=== PATIENT | female | born 1955 | race American Indian/Alaskan Native ===

== ENCOUNTER 2020-07-25 20:23 | Emergency (ER) | payer MEDICARE ==
--- NOTE | 2020-07-25 20:51 | Emergency Department Report ---
HPI - General Chief Complaint: Extremity Injury, Lower Time Seen by Provider: 07/25/20 20:38 - HPI HPI: This is a 64-year-old -[place] female presents to the emergency department with complaint of right knee pain after she fell while leaving a [employer]fat[employer] just prior to presentation. The patient says that her right leg "will not straighten out", and there appears to be some deformity to the right kneecap. The patient says that she is unsure whether she slipped or tripped on something but she fell backwards and her right leg went underneath her. She did not take anything or receive anything for her symptoms prior to presentation. She has a past medical history of hypertension and diabetes. Pain is currently 3 out of 10 in intensity while at rest, but increases significantly with any manipulation or movement of the right knee. Patient denies hitting her head or any loss of consciousness. She denies any neck or back pain, laceration or skin color change. ED Past Medical Hx - Medications Home Medications: Home Medications Medication Instructions Recorded Confirmed Last Taken Type HYDROcodone/APAP 5-325 [[place] 1 each PO Q6HR PRN #12 tablet 07/25/20 Unknown Rx 5/325] ED Review of Systems ROS: Stated complaint: FALL/RT KNEE INJURY Other details as noted in HPI Comment: All other systems reviewed and negative Constitutional: denies: chills, fever Eyes: denies: eye pain, vision change ENT: denies: ear pain, throat pain Respiratory: denies: cough, shortness of breath Cardiovascular: denies: chest pain, palpitations Gastrointestinal: denies: abdominal pain, vomiting Genitourinary: denies: dysuria, discharge Musculoskeletal: joint swelling, arthralgia Skin: denies: rash, lesions Neurological: denies: headache, numbness, paresthesias Physical Exam - Physical Exam Vital Signs: Vital Signs 07/25/20 07/25/20 20:41 20:45 Pulse Rate 82 Respiratory 10 L Rate Blood Pressure 202/86 O2 Sat by Pulse 100 100 Oximetry Physical Exam: GENERAL: The patient is well-developed well-nourished. HENT: Normocephalic. Atraumatic. Patient has moist mucous membranes. EYES: Extraocular motions are intact. NECK: Supple. Trachea is midline. CHEST/LUNGS: Clear to auscultation. There is no respiratory distress noted. HEART/CARDIOVASCULAR: Regular. There is no tachycardia. There is no murmur. ABDOMEN: Abdomen is soft, nontender. Patient has normal bowel sounds. SKIN: Skin is warm and dry. NEURO: The patient is awake, alert, and oriented. The patient is cooperative. Normal speech. MUSCULOSKELETAL: There is some tenderness to palpation to the right anterior knee. The right patella appears deformed and is superior lateral to its anatomic position. The patient's right leg is in slight flexion at the knee and the patient is unable to fully extend her leg. +2/4 dorsalis pedis pulse of the affected right lower extremity. ED Course Vital Signs 07/25/20 07/25/20 20:41 20:45 Pulse Rate 82 Respiratory 10 L Rate Blood Pressure 202/86 O2 Sat by Pulse 100 100 Oximetry ED Medical Decision Making - Radiology Data Radiology results: image reviewed interpreted by me: X-ray of the right knee shows a comminuted fracture of the right patella with the greatest fracture line transverse through the middle of the patella. No foreign body. No joint dislocation. - Medical Decision Making This patient presents to the emergency department with right knee pain after falling while leaving a fast food restaurant. The patient fell backwards in her right leg was bent underneath her. On examination the patient appears to have some deformity to the right patella. X-ray shows a comminuted and displaced transverse patella fracture. Part of the patella has been pulled inferiorly and the other half superiorly. The patient is neurovascularly intact. She was placed in a knee immobilizer and will be placed on crutches to be nonweightbearing to the right lower extremity. The patient presented with some elevated blood pressure. She does have a history of hypertension and is due to take her amlodipine this evening. I gave her a dose of her amlodipine and the blood pressure came down to a more reasonable level. The patient is otherwise asymptomatic from his hypertension. She will be discharged home to follow-up with an orthopedist. She will return to the emergency department with any worsening of her symptoms or with any acute distress. Critical Care Time: No Critical care attestation.: If time is entered above; I have spent that time in minutes in the direct care of this critically ill patient, excluding procedure time. ED Disposition Clinical Impression: Fracture of right patella Qualifiers: Encounter type: initial encounter Fracture type: closed Fracture morphology: comminuted Fracture alignment: displaced Qualified Code(s): S82.041A - Displaced comminuted fracture of right patella, initial encounter for closed fracture Hypertension Qualifiers: Hypertension type: essential hypertension Qualified Code(s): I10 - Essential (primary) hypertension Disposition: TO HOME OR SELFCARE Is pt being admited?: No Condition: Stable Instructions: How to Use a Knee Brace, Hypertension, Adult, Patellar Fracture, Adult, Hypertension (ED) Additional Instructions: Please follow-up with an orthopedist in the next few days. I am giving you a referral for 2 different local orthopedic groups, Dr. Koch and [facility]. Remain in the knee immobilizer and use the crutches to be nonweightbearing to your right leg until follow-up with the orthopedist. Please take your blood pressure medications as previously prescribed. Try to stay away from foods that are high in salt and caffeinated products. Keep a blood pressure log. You have been prescribed a medication that is sedating and therefore should not be taken prior to driving, working, and responsible for children and in no way should be mixed with alcohol of any quantity. Return to the emergency department with any worsening of your symptoms, new or concerning symptoms not addressed during this current emergency department visit, or with any acute distress. Prescriptions: HYDROcodone/APAP 5-325 [[place] 5/325] 1 each PO Q6HR PRN #12 tablet PRN Reason: Pain Referrals: TRUNG ODOM MD [Primary Care Provider] - 3-5 Days JOANN KOCH MD [Staff Physician] - 3-5 Days [facility] [Provider Group] - 3-5 Days Time of Disposition: 22:05
--- NOTE | 2020-07-25 21:47 | XRay Report ---
RIGHT KNEE . VIEW(S) INDICATION / CLINICAL INFORMATION: fall, right knee pain COMPARISON: None available. FINDINGS: BONES / JOINT(S): There is a displaced, comminuted, transversely oriented fracture through the patell a with retraction of the proximal fracture fragment of approximately 3.7 cm. No significant arthritis . SOFT TISSUES: No significant abnormality. ADDITIONAL FINDINGS: None. Signer Name: Aguilar Ceja MD Signed: 07/25/2020 9:42 PM Workstation Name: [id number]
[2020-07-25] MEDS ORDERED: amLODIPine 5 MG TAB PO ONE (21:50)
[2020-07-25 22:38] VITALS: BP 179/100
== END 2020-07-25 22:39 | disposition home or self-care (01) ==
LOC: ED 20:23
DX: S82.014A Nondisplaced osteochondral fracture of right patella, initial encounter for closed fracture (principal); I10 Essential (primary) hypertension; Z79.899 Other long term (current) drug therapy; W18.30XA Fall on same level, unspecified, initial encounter; Y93.89 Activity, other specified; Y92.89 Other specified places as the place of occurrence of the external cause; Y99.8 Other external cause status
CPT/HCPCS: 99283